=== PATIENT | male | born 1935 | race Caucasian/White ===

== ENCOUNTER 2016-11-28 15:25 | Emergency (ER) | payer MEDICARE, BC ==
[~2016-11-28] VITALS: Ht 165.1 cm; Wt 91.6 kg
--- NOTE | ~2016-11-28 | CR72 ---
[facility]. [facility] A Service of [facility] & [facility] RADIOLOGY TEXT RESULTS PATIENT: JOSE CARLOS CUBA LOCATION: SED : 31 UNIT #: [id number] AGE: [address]: Josh Darling MD SEX: M ORDER DR: [id number] [place] [id number] E MR#: [id number] Acc #: [id number] NAME: JOSE CARLOS CUBA. : 1935 SEX: M STUDY DATE/TIME: 11/28/2016 15:48 UNIT: SED ROOM: STUDY DESCRIPTION: CR Chest Single View Portable Attending Physician: Josh Darling M.D. Ordering Physician: Josh Darling M.D. Primary Care Physician: Peter Wnikler M.D. MEDICAL IMAGING REPORT This report is preliminary unless electronic signature is present. EXAM Single view chest INDICATIONS Chest pain for 2 days. Back pain. FINDINGS Single portable AP view of the chest compared to 11/25/2016. The heart and mediastinal contours are unchanged. Patient has a left chest wall pacemaker. There is a right PICC. The lungs are clear. No pleural effusion. IMPRESSION No acute cardiopulmonary findings or significant interval change. Dictated by... Saman Zamora M.D. THIS IS AN ELECTRONICALLY VERIFIED REPORT Saman Zamora M.D. at 11/29/2016 8:10 AM [facility] [place]/mustapha TD: 11/29/2016 02:27 JOB #: [id number] MEDICAL IMAGING REPORT Page 1 of 1
--- NOTE | ~2016-11-28 | EKG ---
PATIENT: JOSE CARLOS CUBA UNIT #: [id number] Ventricular Rate: 78 BPM Atrial Rate: 71 BPM QRS Duration: 160 ms Q-T Interval: 450 ms QTC Calculation(Bezet): 513 ms Calculated R [place]: -65 degrees Calculated T [place]: -150 degrees Diagnosis Line: Demand pacemaker; interpretation is based on Diagnosis Line: intrinsic rhythm Diagnosis Line: Sinus rhythm with Premature supraventricular Diagnosis Line: complexes with occasional Premature ventricular Diagnosis Line: complexes Diagnosis Line: Left axis deviation Diagnosis Line: Right bundle branch block Diagnosis Line: Marked T-wave abnormality, consider inferolateral Diagnosis Line: ischemia Diagnosis Line: Abnormal ECG Diagnosis Line: When compared with ECG of 01-APR-2016 11:13, Diagnosis Line: Significant changes have occurred Diagnosis Line: Confirmed by DONNA HARTMANN MD ([id number]) on Diagnosis Line: 11/29/2016 12:45:16 PM INTERPRETING MD: MARY KATE HARTLEY
[~2016-11-28 15:25] MED LIST: ADVAIR; ADVAIR 100-501 EAC1 IH; ADVAIR 100-501 EAC1 INH; ADVAIR 5001 DISK W/2 INH; ADVAIR 5001 DISK W/D PO; ALBUTEROL17 GM INH; ALDACTONE25 MG PO; AMLODIPINE-ATO1 EAC1 PO; ANEXSIA 5/325 M1 TA1 PO; ASPIRIN EC81 M1 PO; ASPIRIN81 M2 PO; ASPIRIN81 MG PO; B COMPLEX1 CA1 PO; B-121000 MC1 PO; B-COMPLEX1 TAB PO; BACTRIM DS TABL1 TAB PO; CLEOCIN HCL300 M1; COUMADIN PO; COUMADIN4 MG PO; COUMADIN5 MG PO; COUMADIN6 MG PO; DIOVAN HCT 160-1 TAB; ESCITALOPRAM OX10 MG PO; FERRO-TIME325 MG PO; FOLIC ACID PO; FOLIC ACID0.8 MG; KLOR-CON PO; KRILL OIL 5001 EACH PO; LASIX PO; LASIX20 MG PO; LIPITOR20 MG DOB; LIPITOR20 MG PO; LOSARTAN POTASS25 MG PO; LOSARTAN POTASS50 MG PO; LOVENOX40 MG/0.4 INJ; MAGNESIUM400 MG PO; METOPROLOL SUCC25 MG PO; METOPROLOL SUCC50 MG PO; METOPROLOL TART25 MG PO; NORVASC; OXYGEN; SPIRIVA18 MCG INH; SPIRONOLACTONE50 MG PO; SYMBICORT 16010.2 GM INH; SYMBICORT80 INH; TENORMIN25 MG PO; UNK BP MED; VIBRAMYCIN100 M1 PO; VITAMIN B 12 PO; [UNRECOGNIZED DRUG - OTHER] IH
[2016-11-28] MEDS ORDERED: FOLIC ACID0.8 MG PO (15:53)
[2016-11-28] MEDS ORDERED: CLOPIDOGREL75 MG PO (15:54)
[2016-11-28] MEDS ORDERED: OMEPRAZOLE20 M1 PO (15:54)
[2016-11-28] MEDS ORDERED: VANCOMYCIN2 GM/500 M IV (15:56)
[2016-11-28 16:04] LABS: POC - CKMB 1.6 ng/mL (0.0-7.9); POC - TROPONIN <0.05 ng/mL (<=0.05)
[2016-11-28 16:06] LABS: BASOPHIL% 0.3 % (0-2.5); EOSINOPHIL# 0.1 X10e3 (0-0.7); EOSINOPHIL% 1.1 % (0.0-7.0); HEMATOCRIT 24.2 % (38.0-50.0); HEMOGLOBIN 8.2 gm/dL (13.0-16.0); LYMPHOCYTE# 0.6 X10e3 (1.0-3.5); LYMPHOCYTE% 8.6 % (17.0-45.0); MEAN CORPUSCULAR HEMOGLOBIN 34.8 PG (28-34); MEAN CORPUSCULAR HGB CONC 34.1 g/dL (30-36); MEAN PLATELET VOLUME 7.5 FL (6.5-11.5); MONOCYTE# 0.5 X10e3 (0-1.0); MONOCYTE% 7.1 % (3.0-12.0); NEUTROPHIL# 5.9 X10e3 (1.5-7.1); NEUTROPHIL% 82.9 % (40-75); PLATELET COUNT 221 X10e3 (140-420); RED BLOOD COUNT 2.37 X10e (3.90-5.60); RED CELL DISTRIBUTION WIDTH 15.6 % (11.0-15.5); WHITE BLOOD COUNT 7.1 X10e3 (4.0-10.5)
[2016-11-28 16:17] LABS: INR 1.2
[2016-11-28 16:23] LABS: DIFF IND NO
[2016-11-28 16:24] LABS: ALBUMIN SERUM 2.8 g/dL (3.5-5.0); BILIRUBIN,TOTAL 0.6 mg/dL (0.2-2.0); BUN/CREATININE RATIO 15.55; CALCIUM SERUM 7.5 mg/dL (8.4-10.2); CREATININE SERUM 0.9 mg/dL (0.6-1.4); GLOM FILT RATE Estimated 78.7 mL/min (>60); POTASSIUM 3.8 mmol/L (3.5-5.1); PROTEIN TOTAL SERUM 5.3 g/dL (6.0-8.3)
[2016-11-28 18:01] LABS: POC - CKMB 2.1 ng/mL (0.0-7.9)
[2016-11-28 18:02] LABS: POC - TROPONIN <0.05 ng/mL (<=0.05)
== END 2016-11-28 18:24 | disposition home or self-care (01) ==
LOC: SED 15:25
PROVIDERS: Emergency Medicine
DX: R07.89 Other chest pain (principal); D64.9 Anemia, unspecified; R06.02 Shortness of breath; K21.9 Gastro-esophageal reflux disease without esophagitis; I48.91 Unspecified atrial fibrillation; E78.5 Hyperlipidemia, unspecified; I11.0 Hypertensive heart disease with heart failure; I50.9 Heart failure, unspecified; Z95.818 Presence of other cardiac implants and grafts; Z95.810 Presence of automatic (implantable) cardiac defibrillator; Z79.82 Long term (current) use of aspirin; Z79.899 Other long term (current) drug therapy
CPT/HCPCS: 36415; 71010; 80053; 82553; 84484; 85025; 85610; 93005; 96374; 99285

== ENCOUNTER 2016-12-14 17:59 | Emergency (ER) | payer MEDICARE, BC ==
--- NOTE | ~2016-12-14 | EKG ---
PATIENT: JOSE CARLOS CUBA UNIT #: [id number] Ventricular Rate: 91 BPM Atrial Rate: 91 BPM P-R Interval: 160 ms QRS Duration: 158 ms Q-T Interval: 412 ms QTC Calculation(Bezet): 506 ms P [place]: 85 degrees Calculated R [place]: -73 degrees Calculated T [place]: 50 degrees Diagnosis Line: Normal sinus rhythm with sinus arrhythmia Diagnosis Line: Left axis deviation Diagnosis Line: Right bundle branch block Diagnosis Line: Abnormal ECG Diagnosis Line: When compared with ECG of 28-NOV-2016 15:31, Diagnosis Line: Electronic demand pacing is no longer Present Diagnosis Line: Premature ventricular complexes are no longer Diagnosis Line: Present Diagnosis Line: Premature supraventricular complexes are no longer Diagnosis Line: Present Diagnosis Line: T wave inversion no longer evident in Inferior Diagnosis Line: leads Diagnosis Line: T wave inversion no longer evident in Diagnosis Line: Anterolateral leads Diagnosis Line: Confirmed by DONNA HARTMANN MD ([id number]) on Diagnosis Line: 12/15/2016 2:15:04 PM INTERPRETING MD: MARY KATE HARTLEY
--- NOTE | ~2016-12-14 | CR72 ---
[facility]. [facility] A Service of [facility] & [facility] RADIOLOGY TEXT RESULTS PATIENT: JOSE CARLOS CUBA LOCATION: SED : 31 UNIT #: [id number] AGE: [address]: Alen Brannon MD SEX: M ORDER DR: [id number] [place] [id number] E MR#: [id number] Acc #: [id number] NAME: JOSE CARLOS CUBA. : 1935 SEX: M STUDY DATE/TIME: 12/14/2016 18:42 UNIT: SED ROOM: STUDY DESCRIPTION: CR Chest Single View Portable Attending Physician: Alen Brannon M.D. Ordering Physician: Josh Darling M.D. Primary Care Physician: Peter Winkler M.D. MEDICAL IMAGING REPORT This report is preliminary unless electronic signature is present. EXAM Portable chest 12/14/2016 HISTORY Shortness breath and chest pain for 1 day. Benign essential hypertension, COPD exacerbation. FINDINGS The heart is normal in size. Cardiac pacemaker leads in the right atrium and right ventricle. There is no pneumothorax. 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 There is airspace consolidation in the right lower lobe characteristic of pneumonia. Lungs are otherwise clear. There are no pleural effusions. IMPRESSION COPD with right lower lobe pneumonia. Dictated by... Sukhjinder Arroyo M.D. THIS IS AN ELECTRONICALLY VERIFIED REPORT Sukhjinder Arroyo M.D. at 12/15/2016 7:37 AM K[facility]/to TD: 12/14/2016 20:27 JOB #: [id number] MEDICAL IMAGING REPORT Page 1 of 1
[~2016-12-14 17:59] MED LIST changes: +CLOPIDOGREL75 MG PO; +FOLIC ACID0.8 MG PO; +OMEPRAZOLE20 M1 PO; +VANCOMYCIN2 GM/500 M IV
[2016-12-14 18:45] LABS: BASOPHIL% 0.8 % (0-2.5); EOSINOPHIL# 0.6 X10e3 (0-0.7); HEMATOCRIT 26.9 % (38.0-50.0); HEMOGLOBIN 9.3 gm/dL (13.0-16.0); LYMPHOCYTE# 1.1 X10e3 (1.0-3.5); LYMPHOCYTE% 19.4 % (17.0-45.0); MEAN CELL VOLUME 101.3 FL (83-96); MEAN CORPUSCULAR HEMOGLOBIN 34.9 PG (28-34); MEAN CORPUSCULAR HGB CONC 34.5 g/dL (30-36); MEAN PLATELET VOLUME 7.5 FL (6.5-11.5); MONOCYTE# 0.9 X10e3 (0-1.0); MONOCYTE% 14.8 % (3.0-12.0); NEUTROPHIL# 3.3 X10e3 (1.5-7.1); PLATELET COUNT 364 X10e3 (140-420); RED BLOOD COUNT 2.65 X10e (3.90-5.60); RED CELL DISTRIBUTION WIDTH 16.3 % (11.0-15.5); WHITE BLOOD COUNT 5.9 X10e3 (4.0-10.5)
[2016-12-14 18:47] LABS: DIFF IND NO
[2016-12-14 18:49] LABS: POC - TROPONIN <0.05 ng/mL (<=0.05)
[2016-12-14 18:58] LABS: INR 1.4; PROTHROMBIN TIME (PATIENT) 15.8 SECONDS (9.5-12.4)
[2016-12-14 19:01] LABS: ALBUMIN SERUM 3.3 g/dL (3.5-5.0); BILIRUBIN, DIRECT 0.4 mg/dL (0.0-0.2); BILIRUBIN,INDIRECT 0.8 mg/dL (0.0-0.9); BILIRUBIN,TOTAL 1.2 mg/dL (0.2-2.0); BUN/CREATININE RATIO 14.54; CALCIUM SERUM 8.7 mg/dL (8.4-10.2); CREATININE SERUM 1.1 mg/dL (0.6-1.4); GLOM FILT RATE Estimated 61.8 mL/min (>60); POTASSIUM 3.7 mmol/L (3.5-5.1); PROTEIN TOTAL SERUM 6.7 g/dL (6.0-8.3)
[2016-12-14 20:27] LABS: POC - CKMB 1.9 ng/mL (0.0-7.9)
[2016-12-14 20:28] LABS: POC - TROPONIN <0.05 ng/mL (<=0.05)
== END 2016-12-15 00:02 | disposition hospice, home (50) ==
LOC: SED 17:59
PROVIDERS: Emergency Medicine
DX: J18.9 Pneumonia, unspecified organism (principal); K21.9 Gastro-esophageal reflux disease without esophagitis; I25.10 Atherosclerotic heart disease of native coronary artery without angina pectoris; I10 Essential (primary) hypertension; E78.5 Hyperlipidemia, unspecified; Z98.890 Other specified postprocedural states; Z79.899 Other long term (current) drug therapy; Z79.82 Long term (current) use of aspirin; Z79.01 Long term (current) use of anticoagulants
CPT/HCPCS: 36415; 71010; 80048; 80076; 82553; 83880; 84484; 85025; 85610; 85730; 87040; 93005; 96365; 96367; 99285; J1956; J2405; J2543; J3370